=== PATIENT | male | born 1980 | race Caucasian/White ===

== ENCOUNTER 2024-03-10 08:27 | Outpatient (CLI) | payer BC | END 2024-03-10 08:28 | disposition home or self-care (01) | LOC: CSHSLEEP 08:27 | PROVIDERS: ATTEND Family Medicine | DX: G47.33 Obstructive sleep apnea (adult) (pediatric) (principal); R53.83 Other fatigue; E66.9 Obesity, unspecified; Z68.43 Body mass index [BMI] 50.0-59.9, adult; I51.9 Heart disease, unspecified; G47.61 Periodic limb movement disorder | CPT/HCPCS: 95811 ==